=== PATIENT | female | born 1970 ===

== ENCOUNTER 2021-02-27 22:18 | Observation (INO) | payer MEDICAID ==
[~2021-02-27] VITALS: Ht 157.5 cm; Wt 72.2 kg
[2021-02-28 01:21] VITALS: BP 132/89
[2021-02-28] MEDS ORDERED: LORazepam 0.5MG TABLET PO ONE (02:30)
[2021-02-28] MEDS ORDERED: NITROGLYCERIN 0.4 MG BOTTLE (25 TABS) SL PRN (02:30)
[2021-02-28] MEDS: SODIUM CHLORIDE 0.9% 1,000 ML IV SCH ×3 (02:30→23:03)
[2021-02-28] MEDS ORDERED: NITROGLYCERIN 0.4 MG/SPRAY SL PRN (02:30)
[2021-02-28] MEDS ORDERED: ACETAMINOPHEN 325 MG TABLET PO PRN (02:30)
[2021-02-28] MEDS ORDERED: PLEASE ENTER HEIGHT AND WEIGHT MC SCH (03:00)
[2021-02-28] MEDS ORDERED: PLEASE ENTER ALLERGIES MC SCH (03:00)
[2021-02-28 03:14] LABS: MEAN CORPUSCULAR HEMOGLOBIN 31.9 pg (27.0-34.8); MEAN CORPUSCULAR HGB CONC 34.1 g/dL (32.4-35.8); PLATELET COUNT 240 x10^3/uL (130-400); RED BLOOD COUNT 4.06 x10^6/uL (3.82-5.3); RED CELL DISTRIBUTION WIDTH 12.7 % (9.6-15.2)
[2021-02-28 03:16] LABS: ANION GAP 5 mmol/L (5-15); CALCIUM 7.7 mg/dL (8.5-10.1); CHLORIDE 111 mmol/L (98-107); CHOLESTEROL, TOTAL 239 mg/dL (140-239); CREATININE 1.11 mg/dL (0.55-1.02); TRIGLYCERIDES 77 mg/dL (50-200); VLDL CHOLESTEROL 15 mg/dL (0-25)
[2021-02-28 03:18] LABS: CHOL/HDL RATIO 3.9; HDL CHOL % 26 % (28-40); HDL CHOLESTEROL (DIRECT) 62 mg/dL (40-60); LDL CHOLESTEROL,CALCULATED 162 mg/dL (54-169); LDL/HDL RATIO 2.6 (0.5-3.0)
[2021-02-28] MEDS: KETOROLAC 30 MG/1 ML IV PRN ×3 (03:46→21:03)
[2021-02-28] MEDS: PANTOPRAZOLE 20MG TABLET PO SCH (06:21)
[2021-02-28 08:55] VITALS: BP 139/85
[2021-02-28] MEDS: SODIUM CHLORIDE FLUSH 10ML SYR IVF SCH ×2 (09:00→20:59)
[2021-02-28 09:12] LABS: TROPONIN I < 0.015 ng/mL (0.000-0.045)
[2021-02-28] MEDS: morphine SULFATE 10 MG/ML, 1ML IVPush PRN ×2 (09:30→17:53)
[2021-02-28] MEDS ORDERED: ONDANSETRON 2MG/ML, 2ML IVPush PRN (10:30)
[2021-02-28] MEDS ORDERED: REGADENOSON 0.4 MG/5 ML SYRINGE ONE (11:09)
[2021-02-28 13:29] VITALS: BP 115/77
[2021-02-28] MEDS ORDERED: SERT50TA28 PO (14:33)
[2021-02-28] MEDS ORDERED: PANT40TA6 PO (14:33)
[2021-02-28] MEDS ORDERED: LACT1CAP35 PO (14:33)
[2021-02-28] MEDS ORDERED: HYDR-826 PO (14:33)
[2021-02-28] MEDS ORDERED: SUMA6PEN IM (14:33)
[2021-02-28] MEDS ORDERED: DICY10AM2 PO (14:33)
[2021-02-28] MEDS ORDERED: QUET50TA5 PO (14:33)
[2021-02-28] MEDS ORDERED: TOPI50TA8 PO (14:33)
[2021-02-28] MEDS ORDERED: SUMATRIPTAN 6MG/0.5ML SQ PRN (18:00)
[2021-02-28 20:25] VITALS: BP 100/67
[2021-02-28] MEDS ORDERED: QUETIAPINE 25MG TABLET PO SCH (21:00)
[2021-03-01 01:38] VITALS: BP 153/95
[2021-03-01] MEDS: HYDROcodone/APAP 5/325 TABLET PO PRN ×3 (01:56→14:09)
[2021-03-01] MEDS ORDERED: ASPIRIN 325 MG TABLET EC PO SCH (06:00)
[2021-03-01] MEDS: PANTOPRAZOLE 20MG TABLET PO SCH (06:02)
[2021-03-01] MEDS: KETOROLAC 30 MG/1 ML IV PRN (06:03)
[2021-03-01 06:45] LABS: MEAN CORPUSCULAR HEMOGLOBIN 32.1 pg (27.0-34.8); MEAN CORPUSCULAR HGB CONC 34.1 g/dL (32.4-35.8); MEAN PLATELET VOLUME 7.9 fL (7.4-10.4); PLATELET COUNT 238 x10^3/uL (130-400); RED BLOOD COUNT 4.29 x10^6/uL (3.82-5.3)
[2021-03-01 06:55] LABS: ANION GAP 5 mmol/L (5-15); CHLORIDE 110 mmol/L (98-107); CREATININE 0.95 mg/dL (0.55-1.02)
[2021-03-01 07:15] VITALS: BP 130/86
[2021-03-01] MEDS ORDERED: PANTOPRAZOLE 40MG TABLET PO SCH (07:30)
[2021-03-01] MEDS ORDERED: SERTRALINE 50MG TABLET PO SCH (09:00)
[2021-03-01] MEDS ORDERED: LACTOBACILLUS CHEW TABLET PO SCH (09:00)
[2021-03-01] MEDS ORDERED: TOPIRAMATE 25 MG TABLET PO SCH (09:00)
[2021-03-01] MEDS: SODIUM CHLORIDE FLUSH 10ML SYR IVF SCH (09:00)
[2021-03-01] MEDS ORDERED: OMNIPAQUE 350 MG/ML, 100ML BOTTLE ONE (10:50)
[2021-03-01] MEDS ORDERED: DICY10AM2 PO (12:07)
[2021-03-01] MEDS ORDERED: SUMA6PEN IM (12:07)
[2021-03-01] MEDS ORDERED: PANT40TA6 PO (12:07)
[2021-03-01] MEDS ORDERED: TOPI50TA8 PO (12:07)
[2021-03-01] MEDS ORDERED: HYDR-826 PO (12:07)
[2021-03-01] MEDS ORDERED: SIME125C67 PO (12:10)
[2021-03-01] MEDS ORDERED: ONDANSETRON ODT 4 MG ONE (14:08)
[2021-03-01] MEDS ORDERED: ONDANSETRON 4 MG TABLET PO ONE ×2 (14:30)
== END 2021-03-01 14:30 | disposition home or self-care (01) ==
LOC: INTOOBSV 02-28 01:12 → 5SO 02-28 01:12 → DCLOUNGE 03-01 14:22
PROVIDERS: ADMIT Family Medicine; ATTEND Family Medicine
DX: R07.89 Other chest pain (principal); F41.9 Anxiety disorder, unspecified; F43.10 Post-traumatic stress disorder, unspecified; K50.90 Crohn's disease, unspecified, without complications; K21.9 Gastro-esophageal reflux disease without esophagitis; K59.00 Constipation, unspecified; Z88.0 Allergy status to penicillin; Z79.899 Other long term (current) drug therapy
CPT/HCPCS: 36415; 74177; 78452; 80048; 80061; 84484; 85027; 93017; 96361; 96372; 96374; 96375; 96376; A9502; G0378; J1885; J2270; J2405; J2785; J3030; J7030; Q0162; Q0177; Q9967